=== PATIENT | male | born 1955 | race Caucasian/White ===

== ENCOUNTER 2019-01-31 19:22 | Inpatient (IN) | payer OTHER, MEDICARE ==
[~2019-01-31] VITALS: Ht 190.5 cm; Wt 103.1 kg
[2019-01-31 20:00] LABS: BASOPHILS ABSOLUTE AUTO 0.03 K/mm3 (0.00-0.23); BASOPHILS PERCENT AUTO 0 % (0-2); EOSINOPHILS ABSOLUTE AUTO 0.01 K/mm3 (0.00-0.68); EOSINOPHILS PERCENT AUTO 0 % (0-6); Hematocrit 45.3 % (37.0-53.0); Hemoglobin 14.9 g/dL (13.5-17.5); IMMATURE GRAN ABSOLUTE AUTO 0.07 K/mm3 (0.00-0.10); IMMATURE GRAN PERCENT AUTO 1 % (0-1); LYMPHOCYTES ABSOLUTE AUTO 1.45 K/mm3 (0.84-5.20); LYMPHOCYTES PERCENT AUTO 10 % (21-46); MONOCYTES ABSOLUTE AUTO 0.74 K/mm3 (0.16-1.47); MONOCYTES PERCENT AUTO 5 % (4-13); Mean Corpuscular HGB 29.3 pg (26.0-34.0); Mean Corpuscular HGB Conc 32.9 g/dL (31.5-36.5); Mean Corpuscular Volume 89 fL (80-100); Mean Platelet Volume 10.4 fL (9.1-12.4); NEUTROPHILS ABSOLUTE AUTO 12.94 K/mm3 (1.96-9.15); NEUTROPHILS PERCENT AUTO 85 % (41-73); Platelet Count 192 K/mm3 (150-400); RDW Coefficient Variation 13.6 % (11.7-14.2); RDW Standard Deviation 44.7 fL (35.1-46.3); Red Blood Cell Count 5.09 M/mm3 (4.30-5.90); White Blood Cell Count 15.24 K/mm3 (4.00-11.30)
[2019-01-31 20:35] LABS: Alanine Aminotransfer (ALT/SGP 18 U/L (12-78); Albumin, Blood 3.6 g/dL (3.4-5.0); Albumin/Globulin Ratio 0.8 (0.8-1.8); Alk Phos 54 U/L (50-136); Anion Gap 1 mmol/L (6-16); Aspartate Aminotrans (AST/SGOT 11 U/L (12-37); Bilirubin, Total 1.4 mg/dL (0.1-1.0); Blood Urea Nitrogen 17 mg/dL (8-24); Bun/Creatinine Ratio 13.4 (12.0-20.0); CO2, Blood 29 mmol/L (21-32); Calcium, Blood 9.1 mg/dL (8.5-10.1); Chloride, Blood 105 mmol/L (98-108); Creatinine, Blood 1.27 mg/dL (0.60-1.20); Globulin, Blood 4.4 g/dL (2.2-4.0); Glomerular Filtration Rate >60 (60-); Glucose, Blood 104 mg/dL (70-99); Potassium, Blood 3.9 mmol/L (3.5-5.5); Sodium, Blood 135 mmol/L (136-145)
[2019-02-02 04:31] LABS: BASOPHILS ABSOLUTE AUTO 0.01 K/mm3 (0.00-0.23); BASOPHILS PERCENT AUTO 0 % (0-2); EOSINOPHILS ABSOLUTE AUTO 0.01 K/mm3 (0.00-0.68); EOSINOPHILS PERCENT AUTO 0 % (0-6); Hematocrit 35.2 % (37.0-53.0); Hemoglobin 11.4 g/dL (13.5-17.5); IMMATURE GRAN ABSOLUTE AUTO 0.06 K/mm3 (0.00-0.10); IMMATURE GRAN PERCENT AUTO 1 % (0-1); LYMPHOCYTES ABSOLUTE AUTO 0.55 K/mm3 (0.84-5.20); LYMPHOCYTES PERCENT AUTO 6 % (21-46); MONOCYTES ABSOLUTE AUTO 0.73 K/mm3 (0.16-1.47); MONOCYTES PERCENT AUTO 8 % (4-13); Mean Corpuscular HGB 29.2 pg (26.0-34.0); Mean Corpuscular HGB Conc 32.4 g/dL (31.5-36.5); Mean Corpuscular Volume 90 fL (80-100); Mean Platelet Volume 10.8 fL (9.1-12.4); NEUTROPHILS ABSOLUTE AUTO 8.42 K/mm3 (1.96-9.15); NEUTROPHILS PERCENT AUTO 86 % (41-73); Platelet Count 151 K/mm3 (150-400); RDW Coefficient Variation 13.7 % (11.7-14.2); RDW Standard Deviation 45.6 fL (35.1-46.3); White Blood Cell Count 9.78 K/mm3 (4.00-11.30)
[2019-02-02 04:48] LABS: Anion Gap 5 mmol/L (6-16); Blood Urea Nitrogen 15 mg/dL (8-24); Bun/Creatinine Ratio 16.8 (12.0-20.0); CO2, Blood 27 mmol/L (21-32); Calcium, Blood 8.6 mg/dL (8.5-10.1); Chloride, Blood 105 mmol/L (98-108); Creatinine, Blood 0.89 mg/dL (0.60-1.20); Glomerular Filtration Rate >60 (60-); Glucose, Blood 122 mg/dL (70-99); Potassium, Blood 4.2 mmol/L (3.5-5.5); Sodium, Blood 137 mmol/L (136-145)
[2019-02-03 05:13] LABS: BASOPHILS ABSOLUTE AUTO 0.03 K/mm3 (0.00-0.23); BASOPHILS PERCENT AUTO 1 % (0-2); EOSINOPHILS ABSOLUTE AUTO 0.13 K/mm3 (0.00-0.68); EOSINOPHILS PERCENT AUTO 2 % (0-6); Hematocrit 34.9 % (37.0-53.0); Hemoglobin 11.3 g/dL (13.5-17.5); IMMATURE GRAN ABSOLUTE AUTO 0.02 K/mm3 (0.00-0.10); IMMATURE GRAN PERCENT AUTO 0 % (0-1); LYMPHOCYTES ABSOLUTE AUTO 0.97 K/mm3 (0.84-5.20); LYMPHOCYTES PERCENT AUTO 18 % (21-46); MONOCYTES ABSOLUTE AUTO 0.53 K/mm3 (0.16-1.47); MONOCYTES PERCENT AUTO 10 % (4-13); Mean Corpuscular HGB Conc 32.4 g/dL (31.5-36.5); Mean Corpuscular Volume 90 fL (80-100); Mean Platelet Volume 10.6 fL (9.1-12.4); NEUTROPHILS ABSOLUTE AUTO 3.79 K/mm3 (1.96-9.15); NEUTROPHILS PERCENT AUTO 69 % (41-73); Platelet Count 150 K/mm3 (150-400); RDW Coefficient Variation 13.6 % (11.7-14.2); RDW Standard Deviation 44.9 fL (35.1-46.3); White Blood Cell Count 5.47 K/mm3 (4.00-11.30)
[2019-02-03] MEDS ORDERED: HYDR1TAB94 PO (12:57)
== END 2019-02-03 14:05 | disposition home or self-care (01) | DRG 340 ==
LOC: ER 19:22 → SURS 21:52 → ER 21:52 → SURS 23:10
PROVIDERS: Physician Assistant; ADMIT Surgery
PROC: 0DTJ4ZZ Resection of Appendix, Percutaneous Endoscopic Approach (ICD-10-PCS; principal; 2019-02-01 10:00)
DX: K35.32 Acute appendicitis with perforation, localized peritonitis, and gangrene, without abscess (principal)
CPT/HCPCS: 36415; 74176; 80048; 80053; 85025; 88304; 96361; 96374; 96375; 99285-25; A9270-GY; J0330; J0694; J1100; J1170; J1650; J2250; J2370; J2405; J2704; J2710; J3010; J7120

== ENCOUNTER 2019-02-15 15:06 | Inpatient (IN) | payer OTHER, MEDICARE ==
[~2019-02-15] VITALS: Ht 190.5 cm; Wt 101.2 kg
[~2019-02-15 15:06] MED LIST: HYDR1TAB94 PO
--- NOTE | 2019-02-15 18:17 | NUR ---
SHIFT SUMMARY: PRICE IS A DIRECT ADMIT THIS AFTERNOON AFTER BEING FOUND TO HAVE A LOW GRADE FEVER AT HIS OFFICE VISIT WITH DR. BOYLE. HE WAS SENT FOR A CT SCAN WHICH WAS POSITIVE FOR AN ABSCESS IN THE RIGHT LOWER QUADANT. HE IS A&OX4. HE IS PLEASANT AND COOPERATIVE WITH CARE. HE IS FEBRILE, VSS. HE IS LYING IN BED WITH HIS CALL LIGHT IN REACH. SCDs IN PLACE. HE HAS NO PAST MEDICAL HISTORY. HE DID HAVE AN APPENDECTOMY ON . HIS APPENDIX WAS PERFORATED. HE IS WELL AQUAINTED WITH THE ROOM, INDEPENDENT IN THE ROOM AND TO THE BATHROOM. HE HAS FAMILY IN THE ROOM.
--- NOTE | 2019-02-16 08:04 | NUR ---
SHIFT SUMMARY PT RESTED WELL T/O NIGHT. NPO THIS AM. PT DENIES DISCOMFORT T/O NIGHT. INDEPENDENT IN ROOM. IVF + ABX PER ORDERS. NO ACUTE CHANGES T/O NIGHT. PT RESTING AT THIS TIME, CALL LIGHT IN REACH.
[2019-02-16 10:43] LABS: International Normalized Ratio 1.06; Prothrombin Time Results 11.2 Sec (9.7-11.5)
--- NOTE | 2019-02-16 17:22 | NUR ---
SHIFT SUMMARY PT A&OX4, VSS, ABDOMINAL DRAIN PLACED BY IMAGING. PAIN MANAGED WITH 5 MG NORCO. AIME PO REGULAR DIET. AMB INDEPENDENT TO BRP. VOIDING WELL. ABX SCHEDULED. WILL REPORT TO ONCOMING DAIVD RN.
--- NOTE | 2019-02-17 06:49 | NUR ---
POD 1 S/P CT GUIDED DRAIN PLACEMENT. PT AFEBRILE T/O NIGHT, VSS. DRAIN PUTTING OUT PURULANT JOHN ALLEN. PAIN MGD W/ORAL PAIN MEDS W/REP RELIEF. PT AIME REG PO, NO C/V N/V/D. ABX CONT PER ORDERS. PT INDEP IN ROOM, USING CALL LIGHT FOR ASSISTANCE, WILL CONT TO MONITOR UNTIL REP GIVEN TO ONCOMING RN.
[2019-02-17] MEDS ORDERED: HYDR1TAB94 PO (16:26)
[2019-02-17] MEDS ORDERED: AMOCLA875 PO (16:27)
--- NOTE | 2019-02-17 18:05 | NUR ---
DISCHARGE PT LEFT AMBULATING WITH . IV REMOVED. DISCHARGE INFORMATION GONE OVER WITH PATIENT, PATIENT EXPRESSED UNDERSTANDING OF DRAIN EMPTYING. NO FURTHER QUESTIONS AT THIS TIME. PATIENT MEDICATED PER EMAR AND TOLERATING WELL. 30ML EMPTIED BEFORE DISCHARGE.
== END 2019-02-17 18:00 | disposition home or self-care (01) | DRG 863 ==
LOC: SURS 15:06
PROVIDERS: Surgery; ADMIT Surgery
PROC: 0W9G30Z Drainage of Peritoneal Cavity with Drainage Device, Percutaneous Approach (ICD-10-PCS; principal; 2019-02-16)
DX: T81.43XA Infection following a procedure, organ and space surgical site, initial encounter (principal)
CPT/HCPCS: 36415; 49405; 85610; 85730; 87070; 87075; 87076; 87077; 87185; 87186; 87205; A9270-GY; J2543; J7120

== ENCOUNTER 2019-02-21 16:14 | Inpatient (IN) | payer OTHER, MEDICARE ==
[~2019-02-21] VITALS: Ht 190.5 cm; Wt 104.2 kg
[~2019-02-21 16:14] MED LIST changes: +AMOCLA875 PO
--- NOTE | 2019-02-21 16:35 | NUR ---
DIRECT ADMIT PT A/O. PT REPORT PAIN IN ABD. PT HAS ABD BINDER IN PLACE. PT DENIED ANY DIZZINESS OR LIGHTHEADEDNESS. PT TO RESTROOM WITH STEADY GAIT. PT REPORTS VOIDING, WHICH HE DID NOT USE THE URINAL HE WAS GIVEN HE REPORTED THAT HE ALSO HAD A BM. PT AMBULATED TO BED WITH STEADY GAIT. PT CONT TO DENY ANY DIZZINESS OR LIGHTHEADEDNESS. PT DENIES CP, SOB, N/V, N/T. PERRLA. PT REPORTS NO SORES ON BOTTOM, HEELS, OR IN MOUTH. DR BOYLE TO ROOM SOON AFTER PT USED THE RESTROOM. PT HAS DRESSING TO ABD WITH TINY/SMALL AMT OF DRAINAGE. PT CONT TO HAVE ABD BINDER IN PLACE.
--- NOTE | 2019-02-21 17:15 | NUR ---
18G IV PLACED TO RAC PER DR BOYLE HE WAS RECENTLY HERE TO SEE PT, FAMILY PRESENT.
--- NOTE | 2019-02-21 17:28 | NUR ---
PT TO IMAGING BY W/C. PT CONT TO DENY DIZZINESS OR LIGHTHEADEDNESS.
[2019-02-21 17:47] LABS: BASOPHILS ABSOLUTE AUTO 0.05 K/mm3 (0.00-0.23); BASOPHILS PERCENT AUTO 1 % (0-2); EOSINOPHILS ABSOLUTE AUTO 0.11 K/mm3 (0.00-0.68); EOSINOPHILS PERCENT AUTO 1 % (0-6); Hematocrit 37.8 % (37.0-53.0); IMMATURE GRAN ABSOLUTE AUTO 0.05 K/mm3 (0.00-0.10); IMMATURE GRAN PERCENT AUTO 1 % (0-1); LYMPHOCYTES ABSOLUTE AUTO 1.49 K/mm3 (0.84-5.20); LYMPHOCYTES PERCENT AUTO 20 % (21-46); MONOCYTES ABSOLUTE AUTO 0.43 K/mm3 (0.16-1.47); MONOCYTES PERCENT AUTO 6 % (4-13); Mean Corpuscular HGB 28.5 pg (26.0-34.0); Mean Corpuscular HGB Conc 31.7 g/dL (31.5-36.5); Mean Corpuscular Volume 90 fL (80-100); Mean Platelet Volume 9.3 fL (9.1-12.4); NEUTROPHILS PERCENT AUTO 72 % (41-73); Platelet Count 404 K/mm3 (150-400); RDW Coefficient Variation 12.8 % (11.7-14.2); RDW Standard Deviation 42.1 fL (35.1-46.3); Red Blood Cell Count 4.21 M/mm3 (4.30-5.90); White Blood Cell Count 7.63 K/mm3 (4.00-11.30)
--- NOTE | 2019-02-21 17:49 | NUR ---
PT BACK FROM IMAGING.
[2019-02-21 18:07] LABS: Anion Gap 5 mmol/L (6-16); Blood Urea Nitrogen 13 mg/dL (8-24); Bun/Creatinine Ratio 15.4 (12.0-20.0); CO2, Blood 27 mmol/L (21-32); Calcium, Blood 9.2 mg/dL (8.5-10.1); Chloride, Blood 105 mmol/L (98-108); Creatinine, Blood 0.84 mg/dL (0.60-1.20); Glomerular Filtration Rate >60 (60-); Glucose, Blood 100 mg/dL (70-99); Potassium, Blood 3.9 mmol/L (3.5-5.5); Sodium, Blood 137 mmol/L (136-145)
--- NOTE | 2019-02-21 18:10 | NUR ---
DR BOYLE HERE TO SEE PT.
--- NOTE | 2019-02-21 18:10 | NUR ---
DR BOYLE TO SEE PT, FAMILY PRESENT. DR BOYLE REPORTED TO LOOSEN ABD MARTÍN IN WHICH DR BOYLE ASSISTED RN IN DOING SO.
--- NOTE | 2019-02-21 18:12 | NUR ---
RAPID RESPONSE/ CALLED BACK TO ROOM: AFTER LOOSENING ABD BINDER AND LEFT THE ROOM THE PT STATED HE FELT "FLUSHED". PT A/O. BP DOWN TO 92/53, HR 83, BIOX 95% ON RA. CONSOLE ASSEMBLER NOTIFIED, RAPID RESPONSE CALLED. OTHER STAFF TO ROOM TO ASSIST WITH PT INCLUDING DR BOYLE. 1L NS BOLUS GIVEN USING PRESSURE CUFF. PT WAS TRANSFERED TO ICU. FAMILY REMAINED PRESENT. SEE SUPERVISOR MAIL CARRIERS SHEET.
--- NOTE | 2019-02-21 19:00 | NUR ---
PT TRANSFER TO ICU 11 SECONDARY TO SUPPORT ENGINEER. TRANSFER TO BED USING SLIDER SHEET. MONITOR PLACED SHOWING SINUS RHYTHM HEART RATE 90'S. AWAKE ALERT COOPERATIVE LUNG SOUNDS CLEAR RESPIRATIONS REGULAR AND EASY ON ROOM AIR SPO2 97% RATE 16-20/MIN. ABDOMEN SOFT TENDER WITH ABDOMENIAL BINDER IN PLACE.DRESSING INTACT TO ABDOMEN WHERE DRAIN WAS PREVOIUSLY REMOVED. NO ACTIVE S/S BLEEDING. SKIN COOL PALE NO EDEMA NOTED PEDAL PULSES PRESENT. REPOSITIONS SELF IN BED. DRT LEYDI IN TO SEE PATIENT ORDERS NOTED. PRBC HELD FOR NOW. DENIES DISCOMFORT. FAMILY AT BEDSIDE. VISITS WITH VISITORS. CONTINUE TO MONITOR AND REPORT CHANGE IN PATIENT CONDITION
--- NOTE | 2019-02-21 21:20 | NUR ---
DR YEBOAH PAGER NOTIFIED AWAITING RETURN CALL. PT RESTS QUIETLY WHEN UNDISTURBED NO ACTIVE S/S BLEEDING. CONTINUE TO MONITOR AND REPORT CHANGE IN PATIENT CONDITION
--- NOTE | 2019-02-21 21:30 | NUR ---
DR BOYLE UPDATED ON PATIENT CONDITION. RESTS QUIETLY WHEN UNDISTURBED VISITS WITH VISITORS AT BEDSIDE DOZES AT INTERVALS. CONTINUE TO MONITOR AND REPORT CHANGE IN PATIENT CONDITION
--- NOTE | 2019-02-21 22:53 | NUR ---
TO METAL WELDER PER BED AITH MONITOR INTACT ACCOMPANIED BY METAL WELDER STAFF
--- NOTE | 2019-02-22 00:30 | NUR ---
RETURN TO ICU 11 FROM SHEET METAL DUCT WORKER SUPERVISOR. DR YEBOAH IN ROOM ORDERS NOTED. R GROIN SITE CLEAR WITH SHEATH INTACT PRESSURE BAG WITH HEPRAINIZED NS IN PLACE. MONITOR PLACED SHOWING SINUS RHYTHM HEART RATE 90'S-100'S . LUNG REMAIN CLEAR ABDOMINAL BINDER IN PLACE AND DRESSING TO PREVIOUS DRAIN SITE INTACT. DENIES DISCOMFORT ATTEMPT TO USE URINAL UNSUCCESSFUL. [address] PEREZ PLACED WITH IMMEDIATE URINE RETURN. EXPLAINED TO PATIENT RATIONALE TO REMAIN WITH LEG STRAITHT AND ON BEDREST FOR GROIN SITE MANAGEMENT UNDERSTANDING VERBALIZED. CDNTINUE TO MONITOR AND REPORT CHANGE IN PATIENT CONDITION
--- NOTE | 2019-02-22 00:45 | NUR ---
MEDICATED WITH FENTANYL 25MCG IV FOR PAIN 09/17 CONTINUE TO MONITOR AND REPORT CHANGE IN PATIENT CONDITION
[2019-02-22 05:08] LABS: BASOPHILS ABSOLUTE AUTO 0.05 K/mm3 (0.00-0.23); BASOPHILS PERCENT AUTO 0 % (0-2); EOSINOPHILS ABSOLUTE AUTO 0.04 K/mm3 (0.00-0.68); EOSINOPHILS PERCENT AUTO 0 % (0-6); Hematocrit 31.8 % (37.0-53.0); Hemoglobin 10.1 g/dL (13.5-17.5); IMMATURE GRAN ABSOLUTE AUTO 0.08 K/mm3 (0.00-0.10); IMMATURE GRAN PERCENT AUTO 1 % (0-1); LYMPHOCYTES ABSOLUTE AUTO 1.22 K/mm3 (0.84-5.20); LYMPHOCYTES PERCENT AUTO 11 % (21-46); MONOCYTES ABSOLUTE AUTO 0.51 K/mm3 (0.16-1.47); MONOCYTES PERCENT AUTO 5 % (4-13); Mean Corpuscular HGB Conc 31.8 g/dL (31.5-36.5); Mean Corpuscular Volume 88 fL (80-100); Mean Platelet Volume 9.5 fL (9.1-12.4); NEUTROPHILS ABSOLUTE AUTO 9.31 K/mm3 (1.96-9.15); NEUTROPHILS PERCENT AUTO 83 % (41-73); Platelet Count 381 K/mm3 (150-400); RDW Coefficient Variation 12.9 % (11.7-14.2); RDW Standard Deviation 41.9 fL (35.1-46.3); Red Blood Cell Count 3.61 M/mm3 (4.30-5.90); White Blood Cell Count 11.21 K/mm3 (4.00-11.30)
--- NOTE | 2019-02-22 06:05 | NUR ---
SHIFT SUMMARY: RESTS QUIETLY WHEN UNDISTURBED MONIOTOR INTACT SHOWING SINUS RHYTHM HEART RATE 90'S. LUNG SOUNDS REMAIN CLEAR. RESPIRATIONS REGULAR AND EASY SPO2 96-98% ON ROOM AIR. ABDOMINAL BINDER INTACT DRESSING TO PREVIONS DRAIN SITE INTACT. R GROIN SITE WITH SHEATH INTACT NO S/S ACTUVE BLEEDING NOTED. PEREZ PATENT DRAINING SHAWNA URINE. R LEG REMAIN STRAIGHT. REMAINS ON BEDREST AND NPO AT BEDSIDE ATTENTIVE TO NEEDS CARES. PEDAL PULSES PRESENT NO EDEMA NOTED. CONTINUE TO MONITOR AND REPORT CHANGE IN PATIENT CONDITION
--- NOTE | 2019-02-22 12:30 | NUR ---
REASSESSMENT: PT SPENT THE MORNING LAYING FLAT IN BED WITH SHEATH STILL IN. DR. BOYLE ROUNDED AND STATED THAT HE SPOKE WITH DR. YEBOAH THIS MORNING AND PLAN WASN'T TO GO BACK TO SHED BOSS. CALLED DR. YEBOAH AND LEFT MESSAGE ON HIS PHONE. NO CALL BACK SO CALLED HIM AGAIN AND WAS ABLE TO SPEAK WITH HIM. DR. YEBOAH GAVE OK TO PULL SHEATH. HEPARINIZED SALINE STOPPED AND ORDER FOR PTT PLACED. PT REMAINS PALE, BUT HAS NOT HAD ANY S/S OF BLEEDING. DRESSING ON ABD C/D/I. R GROIN SITE C/D/I, SOFT. PT HAS BEEN REQUIRING DILAUDID ABOUT EVERY 2 HOURS FOR BACK PAIN. ATTEMPTED TO CONTROL PAIN WITH REPOSITIONING BUT IT HELPED MINIMALLY. LUNGS REMAIN CLEAR, RA, SR WITH PVC, BP STABLE. PT'S AT THE BEDSIDE AND HAS BEEN FULLY UPDATED.
--- NOTE | 2019-02-22 14:52 | NUR ---
PT'S COMMENTED THAT PT HAD ONLY TAKEN 4 DAYS OF HIS [address] BOYLE NOTIFIED AND RECEIVED ORDER TO CONTINUE AUGMENTIN, SEE ORDERS.
--- NOTE | 2019-02-22 16:41 | NUR ---
SHIFT SUMMARY: PT SPENT THE MORNING LAYING FLAT, THEN HAD THE SHEATH PULLED THIS AFTERNOON AND HAS DONE WELL SINCE. UP TIME WAS 1630 AND PT DANGLED ON THE EDGE OF THE BED. PT GOT DYSPNEIC WITH SITTING UP, BUT HE STATES IT FEELS LIKE IT IS BECAUSE HE HAS TROUBLE TAKING A DEEP BREATH DUE TO ABDOMINAL PAIN AND THE BINDER. PT RECOVERED AFTER ABOUT A MINUTE, BUT THEN WANTED TO LAY BACK DOWN. PT SITTING UP IN BED NOW AND HE STATES HE FEELS BETTER. GROIN SITE REMAINS C/D/I, SOFT WITH NO HEMATOMA. LUNGS ARE CLEAR, DIM IN THE BASES. SR WITH PVCS, BP STABLE. PEREZ WITH CL YELLOW URINE. LEAVING PEREZ IN PLACE AT THIS POINT SINCE PT WASN'T ABLE TO VOID IN BED LAST NIGHT AND HE HAD SUCH DIFFICULTY GETTING TO/SITTING ON THE EOB JUST NOW. ABD DRESSING REMAINS C/D/I, ABD BINDER IN PLACE. DR. FRANKLIN GAVE OK FOR PT TO HAVE REGULAR DIET AFTER UP TIME AND TO MOVE TO SURGICAL FLOOR WITH NO TELE.
--- NOTE | 2019-02-22 19:11 | NUR ---
TRANSFER PT TRANSFERRED TO RM 210 VIA BED WITH RN. PT WAS ABLE TO STAND AND TRANSFER HIMSELF TO THE NEW BED. ALL BELONGINGS SENT WITH PT. REPORT GIVEN TO TONI VANEGAS. PT TOELRATED TRANSFER WELL.
[2019-02-23 04:53] LABS: BASOPHILS ABSOLUTE AUTO 0.04 K/mm3 (0.00-0.23); BASOPHILS PERCENT AUTO 1 % (0-2); EOSINOPHILS ABSOLUTE AUTO 0.14 K/mm3 (0.00-0.68); EOSINOPHILS PERCENT AUTO 2 % (0-6); Hematocrit 27.3 % (37.0-53.0); Hemoglobin 8.8 g/dL (13.5-17.5); IMMATURE GRAN ABSOLUTE AUTO 0.06 K/mm3 (0.00-0.10); IMMATURE GRAN PERCENT AUTO 1 % (0-1); LYMPHOCYTES ABSOLUTE AUTO 1.56 K/mm3 (0.84-5.20); LYMPHOCYTES PERCENT AUTO 18 % (21-46); MONOCYTES ABSOLUTE AUTO 0.62 K/mm3 (0.16-1.47); MONOCYTES PERCENT AUTO 7 % (4-13); Mean Corpuscular HGB 28.4 pg (26.0-34.0); Mean Corpuscular HGB Conc 32.2 g/dL (31.5-36.5); Mean Corpuscular Volume 88 fL (80-100); Mean Platelet Volume 9.6 fL (9.1-12.4); NEUTROPHILS PERCENT AUTO 72 % (41-73); Platelet Count 298 K/mm3 (150-400); RDW Coefficient Variation 13.1 % (11.7-14.2); RDW Standard Deviation 41.7 fL (35.1-46.3); White Blood Cell Count 8.52 K/mm3 (4.00-11.30)
--- NOTE | 2019-02-23 06:07 | NUR ---
SUMMARY NO ACUTE CHANGES SINCE ADMISSION TO THE FLOOR. PT REMAINS A&O X4. PAIN MANAGED WITH PO NORCO. GROIN SITE REMAINS FREE OF HEMATOMA, DRSG INTACT, NO NEW DRAINAGE FROM SPOT THAT WAS TRACED PRIOR TO LEAVING ICU. PT DENIES PAIN IN GROIN AND STATES PAIN IS IN HIS ABD & RELATED TO HIS SURGERY. PEREZ REMAINS IN PLACE, PATENT, CLEAR YELLOW URINE NOTED IN BAG. PT IS ON ROOM AIR, RESP UNLABORED AT REST, DYSPNEA NOTED WITH EXERTION. VSS. WCTM. CALL LIGHT IN REACH
--- NOTE | 2019-02-23 15:25 | NUR ---
AT ABOUT 1445 PT REPORTED "NOT FEELING WELL" AND SOME NAUSEA. O2 WAS 91 ON RA, 1L O2 PLACED FOR COMFORT PER PT REQUEST. REPORTS FEELING MUCH BETTER WITH 02, PT AT 98% WITH 1L NC. ZOFRAN GIVEN PER ORDER. PT TRIED EATING SOME CRACKERS AND PUDDING WITH PO PAIN MED BUT VOMITED SHORTLY AFTER TAKING PAIN MED. REPORTS FEELING BETTER AFTER VOMITING. FAMILY AT BEDSIDE.
--- NOTE | 2019-02-23 17:09 | NUR ---
SHIFT SUMMARY PT HAS WALKED THE HALLWAY IND SEVERAL TIMES TODAY WITH FAMILY. PAIN HAS BEEN CONTROLLED WITH PO PAIN MEDS. PT DID HAVE NAUSEA AND SM AMT VOMITING TODAY AND WAS MED WITH ZOFRAN PER ORDERS. TOLERATING PO FLUIDS AND SM AMT CRACKERS AND SNACKS. PEREZ IN PLACE, OFF FLOOR, DRAINING. PT HAD SHOWER TODAY. FAMILY HAS BEEN AT BEDSIDE THROUGHOUT THE DAY. ASSISTED WITH ADL'S PRN.
--- NOTE | 2019-02-24 05:30 | NUR ---
PATIENT STATED THAT HE SLEEP WELL LAST NIGHT, PT'S ALSO STAYED WITH PATIENT AND SLEPT IN A RECLINER. NO ACUTE CHANGES THIS SHIFT. NO BLEEDING, FROM ABDOMIAL OR GROIN SITES. URINARY CATHERTER REMOVED IN ANTICIPATION OF PATIENT GOING HOME. PATIENT WILL CALL WHEN HE NEEDS TO VOID.
[2019-02-24 06:27] LABS: BASOPHILS ABSOLUTE AUTO 0.04 K/mm3 (0.00-0.23); BASOPHILS PERCENT AUTO 1 % (0-2); EOSINOPHILS ABSOLUTE AUTO 0.25 K/mm3 (0.00-0.68); EOSINOPHILS PERCENT AUTO 4 % (0-6); Hematocrit 25.9 % (37.0-53.0); Hemoglobin 8.3 g/dL (13.5-17.5); IMMATURE GRAN ABSOLUTE AUTO 0.07 K/mm3 (0.00-0.10); IMMATURE GRAN PERCENT AUTO 1 % (0-1); LYMPHOCYTES ABSOLUTE AUTO 1.36 K/mm3 (0.84-5.20); LYMPHOCYTES PERCENT AUTO 19 % (21-46); MONOCYTES ABSOLUTE AUTO 0.44 K/mm3 (0.16-1.47); MONOCYTES PERCENT AUTO 6 % (4-13); Mean Corpuscular HGB 28.4 pg (26.0-34.0); Mean Corpuscular Volume 89 fL (80-100); NEUTROPHILS ABSOLUTE AUTO 4.95 K/mm3 (1.96-9.15); NEUTROPHILS PERCENT AUTO 70 % (41-73); RDW Coefficient Variation 13.1 % (11.7-14.2); RDW Standard Deviation 42.7 fL (35.1-46.3); Red Blood Cell Count 2.92 M/mm3 (4.30-5.90); White Blood Cell Count 7.11 K/mm3 (4.00-11.30)
[2019-02-24 06:29] LABS: Mean Platelet Volume 10.3 fL (9.1-12.4); Platelet Count 257 K/mm3 (150-400)
[2019-02-24] MEDS ORDERED: HYDR1TAB94 PO (16:10)
--- NOTE | 2019-02-24 16:37 | NUR ---
DISCHARGE NOTE D/C INSTRUCTIONS GIVEN TO PT BY RN AND SENT HOME WITH PT. REPORTS NO FURTHER QUESTIONS. PERSONAL BELONGINGS SENT WITH PT. PT VOIDING, EATING, AND DRINKING. PT AMBULATED IND WITH TO PERSONAL VEHICLE. BOTH IV'S DC'D WNL.
== END 2019-02-24 16:30 | disposition home or self-care (01) | DRG 919 ==
LOC: ICUW 16:14 → SURS 16:14 → ICUW 18:46 → SURS 02-22 18:50
PROVIDERS: ADMIT Surgery
PROC: B4151ZZ Fluoroscopy of Inferior Mesenteric Artery using Low Osmolar Contrast (ICD-10-PCS; principal; 2019-02-21)
PROC: B4141ZZ Fluoroscopy of Superior Mesenteric Artery using Low Osmolar Contrast (ICD-10-PCS; 2019-02-21)
DX: T85.838A Hemorrhage due to other internal prosthetic devices, implants and grafts, initial encounter (principal); K66.1 Hemoperitoneum
CPT/HCPCS: 36245; 36246; 36248; 36415; 74177; 75625; 75726; 75774; 80048; 85025; 85730; 86850; 86900; 86901; 86923; 96361; 96374; 96375; 96376; 99152; 99153; A9270; A9270-GY; C1725; C1769; C1887; C1894; G0378; G0379; J1170; J1644; J2250; J2405; J3010; J7030; J7040; J7120; Q9967

== ENCOUNTER 2020-09-13 09:56 | Day surgery (SDC) | payer OTHER ==
[~2020-09-13] VITALS: Ht 190.5 cm; Wt 108.2 kg
[~2020-09-13 09:56] MED LIST changes: +Aspir 8181 MG PO; +MULTIPLE VITAM1 EACH PO
--- NOTE | 2020-09-13 10:25 | NUR ---
09/13/20 1025 Araceli Peraza CHARTED BY [facility]
== END 2020-09-13 11:35 | disposition home or self-care (01) ==
LOC: ORSCSDS 09:56
PROVIDERS: Ophthalmology
PROC: 08RK3JZ Replacement of Left Lens with Synthetic Substitute, Percutaneous Approach (ICD-10-PCS; principal; 2020-09-13 11:15)
DX: H25.12 Age-related nuclear cataract, left eye (principal); Z79.82 Long term (current) use of aspirin
CPT/HCPCS: A9270; J2001; J2250; J3010; J3301; J7040; V2632

== ENCOUNTER 2021-03-07 07:58 | Day surgery (SDC) | payer OTHER ==
[~2021-03-07] VITALS: Ht 190.5 cm; Wt 99.6 kg
[~2021-03-07 07:58] MED LIST changes: +HYDCHL25 PO; +LOSA50 PO
--- NOTE | 2021-03-07 09:34 | NUR ---
03/07/21 0934 Florinda Acosta History, Chart, Medications and Allergies reviewed before start of procedure. Patient confirms NPO status and agrees with scheduled surgery. 3-LEAD EKG REVIEWED WITH PHYSICIAN PRIOR TO START OF PROCEDURE. MONITOR INTACT WITH CONTINUOUS PULSE OXIMETRY AND INTERMITTENT BP. PATIENT DETERMINED TO BE ASA APPROPRIATE FOR PROPOFOL SEDATION PRIOR TO START OF PROCEDURE BY DR. WEBER
--- NOTE | 2021-03-07 10:10 | NUR ---
Discharge instructions reviewed with patient. Patient verbalizes understanding. Copy given to patient to take home. Patient denies c/o. to drive home.
--- NOTE | 2021-03-07 10:21 | NUR ---
VSS. TOLERATING SIPS OF COFFEE.
== END 2021-03-07 10:21 | disposition home or self-care (01) ==
LOC: ORSCMMR 07:58 → ORD 09:15 → ORSCMMR 09:15 → ORSCSDS 09:15 → ORSCMMR 10:21
PROVIDERS: Surgery
PROC: 0DBM8ZX Excision of Descending Colon, Via Natural or Artificial Opening Endoscopic, Diagnostic (ICD-10-PCS; principal; 2021-03-07 09:15)
DX: Z12.11 Encounter for screening for malignant neoplasm of colon (principal); D12.4 Benign neoplasm of descending colon; K64.8 Other hemorrhoids; I10 Essential (primary) hypertension; E78.5 Hyperlipidemia, unspecified; Z79.82 Long term (current) use of aspirin; Z79.899 Other long term (current) drug therapy
CPT/HCPCS: 88305; J2704; J7120

== ENCOUNTER 2021-04-23 01:59 | Emergency (ER) | payer OTHER ==
[~2021-04-23] VITALS: Ht 190.5 cm; Wt 100.7 kg
[2021-04-23] MEDS ORDERED: IBUP400 PO (03:39)
== END 2021-04-23 04:14 | disposition home or self-care (01) ==
LOC: ER 01:59
DX: S82.142A Displaced bicondylar fracture of left tibia, initial encounter for closed fracture (principal); W19.XXXA Unspecified fall, initial encounter
CPT/HCPCS: 29505; 73562-LT; 73590; 96372; 99283-25; A9270; J1885

== ENCOUNTER → 2021-04-25 | Outpatient (CLI) | payer OTHER ==
[~2021-04-25] MED LIST changes: +IBUP400 PO
[2021-04-25 13:38] LABS: BASOPHILS ABSOLUTE AUTO 0.05 K/mm3 (0.00-0.23); BASOPHILS PERCENT AUTO 1 % (0-2); EOSINOPHILS ABSOLUTE AUTO 0.11 K/mm3 (0.00-0.68); EOSINOPHILS PERCENT AUTO 2 % (0-6); IMMATURE GRAN ABSOLUTE AUTO 0.03 K/mm3 (0.00-0.10); IMMATURE GRAN PERCENT AUTO 0 % (0-1); LYMPHOCYTES ABSOLUTE AUTO 1.34 K/mm3 (0.84-5.20); LYMPHOCYTES PERCENT AUTO 18 % (21-46); MONOCYTES ABSOLUTE AUTO 0.57 K/mm3 (0.16-1.47); MONOCYTES PERCENT AUTO 8 % (4-13); Mean Corpuscular HGB 28.8 pg (26.0-34.0); Mean Corpuscular HGB Conc 32.4 g/dL (31.5-36.5); Mean Corpuscular Volume 89 fL (80-100); Mean Platelet Volume 10.6 fL (9.1-12.4); NEUTROPHILS PERCENT AUTO 72 % (41-73); Platelet Count 169 K/mm3 (150-400); RDW Coefficient Variation 14.3 % (11.7-14.2); RDW Standard Deviation 46.9 fL (35.1-46.3); Red Blood Cell Count 4.16 M/mm3 (4.30-5.90)
[2021-04-25 13:57] LABS: Anion Gap 5 mmol/L (6-16); Blood Urea Nitrogen 17 mg/dL (8-24); Bun/Creatinine Ratio 17.1 (12.0-20.0); CO2, Blood 30 mmol/L (21-32); Calcium, Blood 8.7 mg/dL (8.5-10.1); Chloride, Blood 103 mmol/L (98-108); Glomerular Filtration Rate >60 (60-); Glucose, Blood 89 mg/dL (70-99); Potassium, Blood 3.9 mmol/L (3.5-5.5); Sodium, Blood 138 mmol/L (136-145)
== END | disposition home or self-care (01) ==
LOC: LAB 12:57 → LAB SHORT 12:57
PROVIDERS: Orthopaedic Surgery
DX: Z01.818 Encounter for other preprocedural examination (principal); S82.142A Displaced bicondylar fracture of left tibia, initial encounter for closed fracture
CPT/HCPCS: 80048; 85025

== ENCOUNTER 2021-05-02 09:14 | Day surgery (SDC) | payer OTHER ==
[~2021-05-02] VITALS: Ht 190.5 cm; Wt 100.0 kg
[2021-05-02] MEDS ORDERED: Percocet 5-3251 EACH PO (09:59)
--- NOTE | 2021-05-02 10:25 | NUR ---
PT RECENLTY INTO SDS BY WC WITH . PT HAS KNEE IMMOBILIZER TO LEFT LEG. PT A/O. PT ABLE TO GET UNDRESSED AND GOWN IN PLACE. PT REPORTS VOIDING RECENTLY. History, Chart, Medications and Allergies reviewed before start of procedure. Lungs clear T/O to Auscultation. Patient confirms NPO status and agrees with scheduled surgery. Pre-Op teaching done. Pt verbalizes understanding.
--- NOTE | 2021-05-02 15:30 | NUR ---
ARRIVAL TO UNIT PT ARRIVED TO UNIT AT 1500. HE REPORTS PAIN AT 8/10 TO LLE. HE REPORTS INCREASING TINGLING TO LEFT LOWER EXTREMETY FROM BLOCK PLACED DURING SURGERY. MEDICATED PER EMAR AND REPOSITIONED OFF BACK, PT STATES INCREASING RELIEF. SATS REMAIN 92% OR HIGHER ON ROOM AIR, ABLE TO TAKE DEEP BREATHS. WIGGLES TOES, PPX4. CAP REFILL <3. SHORTY WRAP CDI. PT TOLERATING PO WELL GIVEN ICE WATER AND JELLO
--- NOTE | 2021-05-02 17:25 | NUR ---
NO ACUTE CHANGES SINCE ARRIVAL TO SHIFT. PT REPORTS PAIN BETTER MANAGED WITH REPOSITIONING AND MEDICATIONS. HE WAS ABLE TO TAKE A NAP. DENIES NAUSEA. PLAN WILL BE TO WORK WITH THERAPY IN THE MORNING AND DISCHARGE ONCE MEETING THERAPY GOALS.
--- NOTE | 2021-05-03 03:50 | NUR ---
SHIFT SUMMARY Pt A/Ox4, VSS. Surgical SHORTY C/D/I. + RICE. Neuro vasc intact, but slight numbness from surgical block. Voiding without complication. Pain controlled with PRN medications. Antibiotics and fluids infused per EMAR. No acute events overnight. WCTM
--- NOTE | 2021-05-03 13:07 | NUR ---
DISCHARGE SUMMARY- PT D/C'D HOME. DISCHARGE INSTRUCTIONS PROVIDED TO PT AND SPOUSE, VERBALIZED UNDERSTANDING. ALL BELONGINGS TO BE TAKEN HOME AT D/C. NO APPARENT DISTRESS NOTED. WILL CONINUE TO MONITOR UNTIL D/C.
== END 2021-05-03 12:45 | disposition home or self-care (01) ==
LOC: ORSCMMR 09:14 → EDSTATUS 12:30 → ORSCMMR 12:30 → PRE IP 12:30 → SURS 14:40 → ORSCMMR 05-03 12:45
PROVIDERS: Orthopaedic Surgery
PROC: 0QSH04Z Reposition Left Tibia with Internal Fixation Device, Open Approach (ICD-10-PCS; principal; 2021-05-02 10:45)
DX: S82.142A Displaced bicondylar fracture of left tibia, initial encounter for closed fracture (principal); I10 Essential (primary) hypertension; Z79.899 Other long term (current) drug therapy; Z79.82 Long term (current) use of aspirin
CPT/HCPCS: 97110; 97161; A9270; J0690; J1100; J1170; J2370; J2405; J2704; J3010; J7050; J7120